=== PATIENT | female | born 1985 | race Caucasian/White ===

== ENCOUNTER → 2017-09-22 | Outpatient (CLI) | payer OTHER ==
[~2017-09-22] MED LIST: BARIUM 700 MG (E-Z-DISK) TABLET PO ONE; BARIUM SUSPENSION 105% (LIQUID POLIBAR PLUS) 240 ML/DOSE PO ONE; BARIUM SUSPENSION 60% (LIQUID EZ PAQUE) 240 ML DOSE PO ONE
--- NOTE | 2017-09-22 12:54 | Diagnostic Imaging Report ---
EXAMINATION: Barium swallow. INDICATION: Difficulty swallowing. FINDINGS: The preliminary film is unremarkable. A double contrast exam was performed. The patient swallowed the contrast material without difficulty. There was no delay or obstruction to the passage of barium through the esophagus. There is no evidence for a hiatal hernia but there was one episode of reflux. There is no sign of esophagitis. The patient was also given a 12 mm barium tablet. She was able swallow the tablet without difficulty. A cursory examination of the stomach shows that the stomach has good distensibility and motility. There is no mass or ulceration. The duodenal bulb and proximal small bowel are unremarkable. IMPRESSION: 1. The esophagus shows fairly good distensibility and motility. There is no evidence for obstruction. 2. There is mild gastroesophageal reflux without evidence for esophagitis. 3. The stomach and proximal small bowel are unremarkable. Dictated by: Dictated on workstation # [id number]
== END ==
LOC: RAD 10:46
PROVIDERS: ATTEND Internal Medicine
DX: K21.9 Gastro-esophageal reflux disease without esophagitis (principal)
CPT/HCPCS: 74220

== ENCOUNTER 2018-07-11 08:47 | Emergency (ER) | payer OTHER ==
[~2018-07-11] VITALS: Ht 165.1 cm; Wt 90.7 kg
--- OUTSIDE RECORDS SUMMARY | 2018-07-11 08:51 | XMS REPORT ---
Author Author JENNIFER ALFRED Organization [facility] Address [address] [place] [address] Care Team Providers Care Senior Risk Analyst Name Role Phone JENNIFER ALFRED Unavailable PROBLEMS Type Condition ICD9-CM Code [id number]-[id number] Code Onset Dates Condition Status SNOMED Code Problem Partner relational problem Z63.0 Active 9768479827212 Problem Pharyngoesophageal dysphagia R13.14 Active 95033567 Problem Dysthymia F34.1 Active 48939876 Problem Abnormal LFTs R94.5 Active 748181220 Problem Chronic fatigue R53.82 Active 04527041 Problem AUDREY (generalized anxiety disorder) F41.1 Active 33721785 Problem Panic disorder F41.0 Active 829170558 Problem Moderate episode of recurrent major depressive disorder F33.1 Active 302196372 Problem Gastroesophageal reflux disease without esophagitis K21.9 Active 576826252 ALLERGIES No Information ENCOUNTERS Encounter Location Date Diagnosis [place] [id number] [place] [address] 75085- 6554 15 Apr, 2018 Abnormal LFTs R94.5 [place] [id number] [place] [address] 04594- 9526 08 Apr, 2018 Chronic fatigue R53.82 ; Acute conjunctivitis of left eye, unspecified acute conjunctivitis type H10.32 ; Encounter for immunization Z23 and BMI 40.0-44.9, adult Z68.41 [facility] [address] [place] [address] 44648- 2207 November, Moderate episode of recurrent major depressive disorder F33.1 ; AUDREY (generalized anxiety disorder) F41.1 and Panic disorder F41.0 [facility] [id number] [place] [address] 94852- 0505 November, Dysuria R30.0 and Acute cystitis with hematuria N30.01 [place] [address] [place] [address] 07207- 6934 03 Nov, 2017 AUDREY (generalized anxiety disorder) F41.1 ; Panic disorder F41.0 and Moderate episode of recurrent major depressive disorder F33.1 [place] [id number] [place] [address] 57026- 6306 Sep, Panic disorder F41.0 and AUDREY (generalized anxiety disorder) F41.1 [place] [id number] [place] [address] 91951- 8541 Sep, Gastroesophageal reflux disease without esophagitis K21.9 [place] [address] [place] [phone]- 9435 Sep, Pharyngoesophageal dysphagia R13.14 ; Dysthymia F34.1 and Panic disorder F41.0 [place] [id number] [place] [address] 69390- 5367 28 Aug, 2017 Dental examination Z01.20 [facility] [id number] [place] [address] [id number] Jul, Encounter for dental examination Z01.20 [facility] [id number] [place] [address] 74284- 0417 27 May, 2017 Encounter for immunization Z23 [place] [id number] [place] [address] 99543- 3915 May, Partner relational problem Z63.0 [place] [id number] [place] [address] 52081- 2282 Apr, Partner relational problem Z63.0 [place] [id number] [place] [address] 77866- 8037 Apr, IMMUNIZATIONS No Known Immunizations SOCIAL HISTORY Never Assessed REASON FOR VISIT PLAN OF CARE Activity Details Pending Test HEP C ANTIBODY (STATE) Pending Test LIPID PANEL VITAL SIGNS MEDICATIONS Unknown Medications RESULTS No Results PROCEDURES Procedure Date Ordered Result Body Site LIPID PANEL Apr 27, 2018 No Charge Apr 27, 2018 INSTRUCTIONS MEDICATIONS ADMINISTERED No Known Medications MEDICAL (GENERAL) HISTORY Type Description Date Medical History Anxiety Medical History GERD Surgical History Third Molar Extraction 09/05/2017 Hospitalization History Childbirth
--- OUTSIDE RECORDS SUMMARY | 2018-07-11 08:51 | XMS REPORT ---
Author Author NIESHA BEN [facility] Address [address] [place] [address] Care Team Providers Care Supervisor Facepiece Line Name Role Phone BEN SCHERER Unavailable PROBLEMS Type Condition ICD9-CM Code RQT76-KG Code Onset Dates Condition Status SNOMED Code Problem Partner relational problem Z63.0 Active 6445348501231 Problem Moderate episode of recurrent major depressive disorder F33.1 Active 596376125 Problem Gastroesophageal reflux disease without esophagitis K21.9 Active 789490337 Problem Pharyngoesophageal dysphagia R13.14 Active 32739037 Problem Dysthymia F34.1 Active 45553622 Problem AUDREY (generalized anxiety disorder) F41.1 Active 41486069 Problem Panic disorder F41.0 Active 837162692 ALLERGIES Substance Reaction Event Type Date Status Penicillin V Potassium anaphylaxis Drug Allergy November, Active ENCOUNTERS Encounter Location Date Diagnosis [place] [address] [address]- [address] Mar, [place] [id number] [place] [address] 81505- 0860 November, Moderate episode of recurrent major depressive disorder F33.1 ; AUDREY (generalized anxiety disorder) F41.1 and Panic disorder F41.0 [place] [address] [place] [id number] [place] [address] 86032- 7236 November, Dysuria R30.0 and Acute cystitis with hematuria N30.[address] 97616- 2643 November, AUDREY (generalized anxiety disorder) F41.1 ; Panic disorder F41.0 and Moderate episode of recurrent major depressive disorder F33.1 [place] [address] [place] [id number] [place] [address] 90073- 4628 Sep, Panic disorder F41.0 and AUDREY (generalized anxiety disorder) F41.1 [place] [address] [place] [address] 16840- 1464 Sep, Gastroesophageal reflux disease without esophagitis K21.9 [place] [address] [place] [id number] [place] [address] 56048- 7645 Sep, Pharyngoesophageal dysphagia R13.14 ; Dysthymia F34.1 and Panic disorder F41.0 [place] [address] [id number] [place] [address] 67251- 3286 Aug, Dental examination Z01.20 [facility] [id number] [place] [address] [id number] Jul, Encounter for dental examination Z01.20 [place] [address] [place] [address] [id number] [place] [address] 17720- 1467 May, Encounter for immunization Z23 [place] [address] [id number] [place] [address] 27817- 1545 May, Partner relational problem Z63.0 [place] [address] [id number] [place] [address] 14849- 6408 Apr, Partner relational problem Z63.0 [place] [address] [place] [id number] [place] [address] 90313- 9267 Apr, IMMUNIZATIONS No Known Immunizations SOCIAL HISTORY Never Assessed REASON FOR VISIT poss UTI-twooden PLAN OF CARE Activity Details Follow Up prn Reason: VITAL SIGNS Height 60 in 2017-11-17 Weight 203.2 lbs 2017-11-17 Temperature 97.9 degrees Fahrenheit 2017-11-17 Heart Rate 76 bpm 2017-11-17 Respiratory Rate 18 2017-11-17 BMI 39.68 kg/m2 2017-11-17 Blood pressure systolic 112 mmHg 2017-11-17 Blood pressure diastolic 76 mmHg 2017-11-17 MEDICATIONS Medication Instructions Dosage Frequency Start Date End Date Duration Status Lorazepam 1 MG Orally Once a day prn 1 tablet 30 days Active Lexapro 20 MG Orally Once a day 1 tablet 24h 30 days Active Zantac 150 MG Orally twice a day 1 tab 12h Sep, 30 day(s) Active Macrobid 100 mg Orally every 12 hrs 1 capsule with food 12h November, November, 03 days Active Wellbutrin XL 150 MG Orally Once a day 1 tablet every morning for one week then take 2 tablets every morning 24h November, 30 day(s) Active Valium Active Ibuprofen 200 MG Orally every 4-6 hours as needed 2 tablet Not- Taking Tylenol Not-Taking RESULTS No Results PROCEDURES Procedure Date Ordered Result Body Site URINALYSIS, AUTO, W/O SCOPE November 17, 2017 CULTURE, BACTERIA, OTHER November 17, 2017 URINE CULTURE/COLONY COUNT November 17, 2017 INSTRUCTIONS MEDICATIONS ADMINISTERED No Known Medications MEDICAL (GENERAL) HISTORY Type Description Date Medical History Anxiety Medical History GERD Surgical History Third Molar Extraction 09/05/2017 Hospitalization History Childbirth
--- OUTSIDE RECORDS SUMMARY | 2018-07-11 08:51 | XMS REPORT ---
Author Author ILENE ABIODUN Organization [facility] Address [address] [place] [address] Care Team Providers Care Sap Business Objects Consultant Name Role Phone DASIADUONG ABIODUN Unavailable PROBLEMS Type Condition ICD9-CM Code YLK77-SZ Code Onset Dates Condition Status SNOMED Code Problem Partner relational problem Z63.0 Active 3192953543087 Problem Moderate episode of recurrent major depressive disorder F33.1 Active 437163966 Problem Gastroesophageal reflux disease without esophagitis K21.9 Active 561579101 Problem Pharyngoesophageal dysphagia R13.14 Active 78632346 Problem Dysthymia F34.1 Active 37176599 Problem AUDREY (generalized anxiety disorder) F41.1 Active 80964078 Problem Panic disorder F41.0 Active 268686868 ALLERGIES No Information ENCOUNTERS Encounter Location Date Diagnosis [place] [address] [place] [address] 94347- 4518 Mar, [facility] [id number] [place] [address] 46544- 6812 November, Moderate episode of recurrent major depressive disorder F33.1 ; AUDREY (generalized anxiety disorder) F41.1 and Panic disorder F41.0 [facility] [address] [place] [address] 62213- 3101 November, Dysuria R30.0 and Acute cystitis with hematuria N30.01 [place] [address] [place] [id number] [place] [address] 19873- 7914 November, AUDREY (generalized anxiety disorder) F41.1 ; Panic disorder F41.0 and Moderate episode of recurrent major depressive disorder F33.1 [facility] [address] [place] [address] 11289- 2781 Sep, Panic disorder F41.0 and AUDREY (generalized anxiety disorder) F41.1 [facility] [id number] [place] [address] 20174- 5616 Sep, Gastroesophageal reflux disease without esophagitis K21.9 [place] [id number] [place] [address]- 1210 Sep, Pharyngoesophageal dysphagia R13.14 ; Dysthymia F34.1 and Panic disorder F41.0 [place] [address] 58961- 8919 28 Aug, 2017 Dental examination Z01.20 [facility] [address] [id number] Jul, Encounter for dental examination Z01.20 [place] [address] 24961- 6418 May, Encounter for immunization Z23 [place] [address] 99288- 1171 08 May, 2017 Partner relational problem Z63.0 [place] [address] 26963- 2742 18 Apr, 2017 Partner relational problem Z63.0 [place] [address] 13372- 6991 17 Apr, 2017 IMMUNIZATIONS No Known Immunizations SOCIAL HISTORY Never Assessed REASON FOR VISIT f/u WB-SUJATHA PLAN OF CARE Activity Details Follow Up 4 Months, prn Reason: VITAL SIGNS Height 60 in 2017-12-11 Weight 199.3 lbs 2017-12-11 Heart Rate 83 bpm 2017-12-11 Respiratory Rate 18 2017-12-11 BMI 38.92 kg/m2 2017-12-11 Blood pressure systolic 128 mmHg 2017-12-11 Blood pressure diastolic 82 mmHg 2017-12-11 MEDICATIONS Medication Instructions Dosage Frequency Start Date End Date Duration Status Zantac 150 MG Orally twice a day 1 tab 12h Sep, 30 day(s) Not- Taking Wellbutrin XL 300 MG Orally Once a day 1 tablet in the morning 24h November, 90 days Active Ibuprofen 200 MG Orally every 4-6 hours as needed 2 tablet Not- Taking Tylenol Not-Taking Lexapro 20 MG Orally Once a day 1 tablet 24h 90 days Active Lorazepam 1 MG Orally Once a day prn 1 tablet 30 days Active RESULTS No Results PROCEDURES No Known procedures INSTRUCTIONS MEDICATIONS ADMINISTERED No Known Medications MEDICAL (GENERAL) HISTORY Type Description Date Medical History Anxiety Medical History GERD Surgical History Third Molar Extraction 09/05/2017 Hospitalization History Childbirth
--- OUTSIDE RECORDS SUMMARY | 2018-07-11 08:52 | XMS REPORT ---
Author Author radhaTIFFANIE Padron Organization [facility] Address [address] [place] [address] Care Team Providers Care Implant Polisher Name Role Phone TIFFANIE Franz Unavailable PROBLEMS Type Condition ICD9-CM Code PON89-IH Code Onset Dates Condition Status SNOMED Code Problem Partner relational problem Z63.0 Active 2543581337157 Problem Moderate episode of recurrent major depressive disorder F33.1 Active 905333956 Problem Gastroesophageal reflux disease without esophagitis K21.9 Active 299968260 Problem Pharyngoesophageal dysphagia R13.14 Active 02408341 Problem Dysthymia F34.1 Active 38584261 Problem AUDREY (generalized anxiety disorder) F41.1 Active 71704906 Problem Panic disorder F41.0 Active 960605633 ALLERGIES Substance Reaction Event Type Date Status Penicillin V Potassium anaphylaxis Drug Allergy Aug, Active ENCOUNTERS Encounter Location Date Diagnosis [place] [address] [address]64- 8438 Mar, [place] [address] [place] [address] [id number] [place] [address] 48279- 0165 November, Moderate episode of recurrent major depressive disorder F33.1 ; AUDREY (generalized anxiety disorder) F41.1 and Panic disorder F41.0 [place] [address] [place] [id number] [place] [address] 53407- 8343 November, Dysuria R30.0 and Acute cystitis with hematuria N30.01 [place] [address] [place] [address] [id number] [place] [address] 19646- 1336 November, AUDREY (generalized anxiety disorder) F41.1 ; Panic disorder F41.0 and Moderate episode of recurrent major depressive disorder F33.1 [place] [address] 37475- 7965 Sep, Panic disorder F41.0 and AUDREY (generalized anxiety disorder) F41.1 [facility] [address] [place] [address] 08791- 0373 Sep, Gastroesophageal reflux disease without esophagitis K21.9 [facility] [address] [id number] [place] [address] 63563- 2132 Sep, Pharyngoesophageal dysphagia R13.14 ; Dysthymia F34.1 and Panic disorder F41.0 [facility] [address] [place] [address] 45423- 3791 Aug, Dental examination Z01.20 [facility] [address] [place] [address] [id number] Jul, Encounter for dental examination Z01.20 [facility] [id number] [place] [address] 47835- 4049 May, Encounter for immunization Z23 [facility] [address] [place] [id number] [place] [address] 25867- 5957 08 May, 2017 Partner relational problem Z63.0 [place] [address] [id number] [place] [address] 22927- 7503 18 Apr, 2017 Partner relational problem Z63.0 [facility] [address] [place] [id number] [place] [address] 57375- 9335 Apr, IMMUNIZATIONS No Known Immunizations SOCIAL HISTORY Never Assessed REASON FOR VISIT Lower left wisdom tooth extraction post op pain PLAN OF CARE Activity Details Follow Up prn Reason: VITAL SIGNS Heart Rate 72 bpm 2017-09-10 Blood pressure systolic 124 mmHg 2017-09-10 Blood pressure diastolic 81 mmHg 2017-09-10 MEDICATIONS Medication Instructions Dosage Frequency Start Date End Date Duration Status Tylenol Active Valium Active Percocet 5-325 MG Orally every 4-6 hrs 1 tablet as needed Aug, Sep, 1 days Active Clindamycin HCl Active Ibuprofen Active Lorazepam Active RESULTS No Results PROCEDURES Procedure Date Ordered Result Body Site LTD ORAL EVALUATION - PROBLEM FOCUS Sep 10, 2017 INSTRUCTIONS MEDICATIONS ADMINISTERED No Known Medications MEDICAL (GENERAL) HISTORY Type Description Date Medical History Anxiety Medical History GERD Surgical History Third Molar Extraction 09/05/2017 Hospitalization History Childbirth
--- OUTSIDE RECORDS SUMMARY | 2018-07-11 08:52 | XMS REPORT ---
Author Author JENNIFER ALFRED Organization [facility] Address [address] [place] [address] Care Team Providers Care Rubber Block Layer Name Role Phone JENNIFER ALFRED Unavailable PROBLEMS Type Condition ICD9-CM Code ATU29-KX Code Onset Dates Condition Status SNOMED Code Problem Partner relational problem Z63.0 Active 5468155212690 Problem Moderate episode of recurrent major depressive disorder F33.1 Active 267252127 Problem Gastroesophageal reflux disease without esophagitis K21.9 Active 526623693 Problem Pharyngoesophageal dysphagia R13.14 Active 49823985 Problem Dysthymia F34.1 Active 40873752 Problem AUDERY (generalized anxiety disorder) F41.1 Active 42754260 Problem Panic disorder F41.0 Active 719293937 ALLERGIES Substance Reaction Event Type Date Status Penicillin V Potassium anaphylaxis Drug Allergy Sep, Active ENCOUNTERS Encounter Location Date Diagnosis [place] [address] [address]- [address] Mar, [place] [address] 94311- 8796 November, Moderate episode of recurrent major depressive disorder F33.1 ; AUDREY (generalized anxiety disorder) F41.1 and Panic disorder F41.0 [place] [address] [place] [id number] [place] [address] 32268- 5961 November, Dysuria R30.0 and Acute cystitis with hematuria N30.[address] 6[address]00- 3967 November, AUDREY (generalized anxiety disorder) F41.1 ; Panic disorder F41.0 and Moderate episode of recurrent major depressive disorder F33.1 [place] [address] 52844- 6179 Sep, Panic disorder F41.0 and AUDREY (generalized anxiety disorder) F41.1 [place] [address] [place] [address] 76223- 9323 Sep, Gastroesophageal reflux disease without esophagitis K21.9 [place] [address] [place] [id number] [place] [address] 38865- 0017 Sep, Pharyngoesophageal dysphagia R13.14 ; Dysthymia F34.1 and Panic disorder F41.0 [place] [address] [place] [id number] [place] [address] 12120- 4385 Aug, Dental examination Z01.20 [facility] [address] [id number] [place] [address] [id number] Jul, Encounter for dental examination Z01.20 [place] [address] [address] [id number] [place] [address] 19650- 8706 May, Encounter for immunization Z23 [place] [address] [address] [id number] [place] [address] 34701- 9358 May, Partner relational problem Z63.0 [place] [address] 66600- 6797 Apr, Partner relational problem Z63.0 [place] [address] [place] [id number] [place] [address] 58722- 9103 Apr, IMMUNIZATIONS No Known Immunizations SOCIAL HISTORY Never Assessed REASON FOR VISIT Establish Care- Brandi, Pt feels like food is stuck in her throat and sometimes she vomits from it. , Also, wants to talk about anxiety and wants to have a refill for valium and Lexapro PLAN OF CARE Activity Details Follow Up prn Reason: VITAL SIGNS Height 60 in 2017-09-11 Weight 194.7 lbs 2017-09-11 Temperature 98.4 degrees Fahrenheit 2017-09-11 Heart Rate 72 bpm 2017-09-11 Respiratory Rate 20 2017-09-11 BMI 38.02 kg/m2 2017-09-11 Blood pressure systolic 128 mmHg 2017-09-11 Blood pressure diastolic 76 mmHg 2017-09-11 MEDICATIONS Medication Instructions Dosage Frequency Start Date End Date Duration Status Clindamycin HCl 150 MG Orally every 6 hrs 1 capsule 6h Active Lexapro 20 MG Orally Once a day 1 tablet 24h 30 days Active Percocet 5-325 MG Orally every 4-6 hrs 1 tablet as needed Aug, Sep, Active Tylenol Not-Taking Valium Active Ibuprofen 200 MG Orally every 4-6 hours as needed 2 tablet Active Lorazepam Orally Once a day 1 tablet as needed 24h Active RESULTS Name Result Date Reference Range Barium Swallow 2017-09-22 PROCEDURES No Known procedures INSTRUCTIONS MEDICATIONS ADMINISTERED No Known Medications MEDICAL (GENERAL) HISTORY Type Description Date Medical History Anxiety Medical History GERD Surgical History Third Molar Extraction 09/05/2017 Hospitalization History Childbirth
--- OUTSIDE RECORDS SUMMARY | 2018-07-11 08:52 | XMS REPORT ---
Author Author MURRAY KENNY [facility] Address [address] [place] [address] Care Team Providers Care Social Service Assistant Name Role Phone MURRAY KENNY Unavailable PROBLEMS Type Condition ICD9-CM Code MYP84-[id number] Code Onset Dates Condition Status SNOMED Code Problem Partner relational problem Z63.0 Active 1280338217227 Problem Moderate episode of recurrent major depressive disorder F33.1 Active 113147398 Problem Gastroesophageal reflux disease without esophagitis K21.9 Active 392742394 Problem Pharyngoesophageal dysphagia R13.14 Active 33121183 Problem Dysthymia F34.1 Active 14759508 Problem AUDREY (generalized anxiety disorder) F41.1 Active 14291801 Problem Panic disorder F41.0 Active 092622291 ALLERGIES No Information ENCOUNTERS Encounter Location Date Diagnosis [place] [id number] [place] [address] 57476- 3781 Dec, [place] [id number] [place] [address] 52045- 3045 November, Dysuria R30.0 and Acute cystitis with hematuria N30.01 [place] [id number] [place] [address] 69069- 9968 November, AUDREY (generalized anxiety disorder) F41.1 ; Panic disorder F41.0 and Moderate episode of recurrent major depressive disorder F33.1 [place] [id number] [place] [address] 86509- 5794 Sep, Panic disorder F41.0 and AUDREY (generalized anxiety disorder) F41.1 [place] [id number] [place] [address] 16709- 2839 Sep, Gastroesophageal reflux disease without esophagitis K21.9 [place] [address] [place] [address] Sep, Pharyngoesophageal dysphagia R13.14 ; Dysthymia F34.1 and Panic disorder F41.0 [facility] [address] [place] [address] 27196- 2219 Aug, Dental examination Z01.20 [facility] [address] [place] [address] [phone] Jul, Encounter for dental examination Z01.20 [place] [id number] [place] [address] 27941- 5652 May, Encounter for immunization Z23 [place] [id number] [place] [address] 40829- 5500 May, Partner relational problem Z63.0 [place] [address] [place] [address] 81838- 4991 Apr, Partner relational problem Z63.0 [place] [id number] [place] [address] 56826- 9535 Apr, IMMUNIZATIONS No Known Immunizations SOCIAL HISTORY Never Assessed REASON FOR VISIT FYI only PLAN OF CARE VITAL SIGNS MEDICATIONS Unknown Medications RESULTS No Results PROCEDURES No Known procedures INSTRUCTIONS MEDICATIONS ADMINISTERED No Known Medications MEDICAL (GENERAL) HISTORY Type Description Date Medical History Anxiety Medical History GERD Surgical History Third Molar Extraction 09/05/2017 Hospitalization History Childbirth
--- OUTSIDE RECORDS SUMMARY | 2018-07-11 08:52 | XMS REPORT ---
Author Author JENNIFER ALFRED Organization [facility] Address [address] [place] [address] Care Team Providers Care Screening Nurse Name Role Phone JENNIFER ALFRED Unavailable PROBLEMS Type Condition ICD9-CM Code BUQ58-TU Code Onset Dates Condition Status SNOMED Code Problem Partner relational problem Z63.0 Active 0028000791990 Problem Moderate episode of recurrent major depressive disorder F33.1 Active 554513831 Problem Gastroesophageal reflux disease without esophagitis K21.9 Active 237537245 Problem Pharyngoesophageal dysphagia R13.14 Active 87442070 Problem Dysthymia F34.1 Active 22225993 Problem AUDREY (generalized anxiety disorder) F41.1 Active 68863561 Problem Panic disorder F41.0 Active 746355476 ALLERGIES No Information ENCOUNTERS Encounter Location Date Diagnosis [place] [id number] [place] [address] 77868- [phone] Mar, [facility] [id number] [place] [address] 21155- 6895 November, Moderate episode of recurrent major depressive disorder F33.1 ; AUDREY (generalized anxiety disorder) F41.1 and Panic disorder F41.0 [facility] [id number] [place] [address] 29988- 4072 November, Dysuria R30.0 and Acute cystitis with hematuria N30.01 [place] [id number] [place] [address] 89849- 2375 November, AUDREY (generalized anxiety disorder) F41.1 ; Panic disorder F41.0 and Moderate episode of recurrent major depressive disorder F33.1 [facility] [address] [place] [address] 38668- 6770 Sep, Panic disorder F41.0 and AUDREY (generalized anxiety disorder) F41.1 [facility] [address] [address] Sep, Gastroesophageal reflux disease without esophagitis K21.9 [facility] [id number] [place] [address] 73642- 5748 Sep, Pharyngoesophageal dysphagia R13.14 ; Dysthymia F34.1 and Panic disorder F41.0 [facility] [id number] [place] [address] 34384- 8266 28 Aug, 2017 Dental examination Z01.20 [facility] [address] [place] [address] [phone] Jul, Encounter for dental examination Z01.20 [place] [id number] [place] [address] 21613- 3417 27 May, 2017 Encounter for immunization Z23 [place] [id number] [place] [address] 27389- 3754 08 May, 2017 Partner relational problem Z63.0 [place] [id number] [place] [address] 22990- 9173 18 Apr, 2017 Partner relational problem Z63.0 [place] [id number] [place] [address] 58161- 7599 17 Apr, 2017 IMMUNIZATIONS No Known Immunizations SOCIAL HISTORY Never Assessed REASON FOR VISIT PLAN OF CARE VITAL SIGNS MEDICATIONS Medication Instructions Dosage Frequency Start Date End Date Duration Status Zantac 150 MG Orally twice a day 1 tab 12h Sep, 30 day(s) Active RESULTS No Results PROCEDURES No Known procedures INSTRUCTIONS MEDICATIONS ADMINISTERED No Known Medications MEDICAL (GENERAL) HISTORY Type Description Date Medical History Anxiety Medical History GERD Surgical History Third Molar Extraction 09/05/2017 Hospitalization History Childbirth
--- OUTSIDE RECORDS SUMMARY | 2018-07-11 08:52 | XMS REPORT ---
Author Author ILENE ABIODUN Organization [facility] Address [address] [place] [address] Care Team Providers Care Equipment Application Specialist Name Role Phone DASIABHUPINDER WATTERSA Unavailable PROBLEMS Type Condition ICD9-CM Code UHP27-MB Code Onset Dates Condition Status SNOMED Code Problem Partner relational problem Z63.0 Active 0813819183585 Problem Moderate episode of recurrent major depressive disorder F33.1 Active 847018871 Problem Gastroesophageal reflux disease without esophagitis K21.9 Active 974903417 Problem Pharyngoesophageal dysphagia R13.14 Active 34639046 Problem Dysthymia F34.1 Active 70849078 Problem AUDREY (generalized anxiety disorder) F41.1 Active 30666920 Problem Panic disorder F41.0 Active 743460967 ALLERGIES Substance Reaction Event Type Date Status Penicillin V Potassium anaphylaxis Drug Allergy Sep, Active ENCOUNTERS Encounter Location Date Diagnosis [place] [id number] [place] [address] 23594- 0196 Mar, [place] [id number] [place] [address] 62225- 8793 November, Moderate episode of recurrent major depressive disorder F33.1 ; AUDREY (generalized anxiety disorder) F41.1 and Panic disorder F41.0 [facility] [id number] [place] [address] 36385- 4065 November, Dysuria R30.0 and Acute cystitis with hematuria N30.01 [place] [address] 91376- 2870 November, AUDREY (generalized anxiety disorder) F41.1 ; Panic disorder F41.0 and Moderate episode of recurrent major depressive disorder F33.1 [place] [id number] [place] [address] 30722- 2562 Sep, Panic disorder F41.0 and AUDREY (generalized anxiety disorder) F41.1 [place] [address] [place] [address] 70510- 8251 Sep, Gastroesophageal reflux disease without esophagitis K21.9 [place] [id number] [place] [address] 87369- 9211 Sep, Pharyngoesophageal dysphagia R13.14 ; Dysthymia F34.1 and Panic disorder F41.0 [place] [address] [place] [address] 96384- 1993 Aug, Dental examination Z01.20 [facility] [id number] [place] [address] [phone] Jul, Encounter for dental examination Z01.20 [place] [id number] [place] [address] 30531- 9555 27 May, 2017 Encounter for immunization Z23 [place] [id number] [place] [address] 22145- 5598 08 May, 2017 Partner relational problem Z63.0 [place] [id number] [place] [address] 93287- 2836 18 Apr, 2017 Partner relational problem Z63.0 [place] [id number] [place] [address] 27370- 6297 Apr, IMMUNIZATIONS No Known Immunizations SOCIAL HISTORY Never Assessed REASON FOR VISIT intake PLAN OF CARE Activity Details Follow Up 2 Months Reason: VITAL SIGNS Height 60 in 2017-10-02 Weight 194.6 lbs 2017-10-02 Heart Rate 80 bpm 2017-10-02 Respiratory Rate 20 2017-10-02 BMI 38.00 kg/m2 2017-10-02 Blood pressure systolic 112 mmHg 2017-10-02 Blood pressure diastolic 84 mmHg 2017-10-02 MEDICATIONS Medication Instructions Dosage Frequency Start Date End Date Duration Status Ibuprofen 200 MG Orally every 4-6 hours as needed 2 tablet Not- Taking Zantac 150 MG Orally twice a day 1 tab 12h Sep, 30 day(s) Active Tylenol Not-Taking Lorazepam 1 MG Orally Once a day 1 tablet 24h 30 days Active Clindamycin HCl 150 MG Orally every 6 hrs 1 capsule 6h Not-Taking Lexapro 20 MG Orally Once a day 1 tablet 24h 30 days Active Valium Not-Taking RESULTS No Results PROCEDURES No Known procedures INSTRUCTIONS MEDICATIONS ADMINISTERED No Known Medications MEDICAL (GENERAL) HISTORY Type Description Date Medical History Anxiety Medical History GERD Surgical History Third Molar Extraction 09/05/2017 Hospitalization History Childbirth
--- OUTSIDE RECORDS SUMMARY | 2018-07-11 08:52 | XMS REPORT ---
Author Author ILNEE ABIODUN Organization [facility] Address [address] [place] [address] Care Team Providers Care Orchard Manager Name Role Phone DASIABHUPINDER WATTERSA Unavailable PROBLEMS Type Condition ICD9-CM Code AXI67-[id number] Code Onset Dates Condition Status SNOMED Code Problem Partner relational problem Z63.0 Active 3681629406515 Problem Moderate episode of recurrent major depressive disorder F33.1 Active 472014408 Problem Gastroesophageal reflux disease without esophagitis K21.9 Active 181227804 Problem Pharyngoesophageal dysphagia R13.14 Active 38419129 Problem Dysthymia F34.1 Active 76404385 Problem AUDREY (generalized anxiety disorder) F41.1 Active 49659831 Problem Panic disorder F41.0 Active 908868062 ALLERGIES Substance Reaction Event Type Date Status Penicillin V Potassium anaphylaxis Drug Allergy November, Active ENCOUNTERS Encounter Location Date Diagnosis [place] [id number] [place] [address] 49485- 7769 Mar, [place] [id number] [place] [address] 12435- 2755 November, Moderate episode of recurrent major depressive disorder F33.1 ; AUDREY (generalized anxiety disorder) F41.1 and Panic disorder F41.0 [place] [id number] [place] [address] 34398- 3927 November, Dysuria R30.0 and Acute cystitis with hematuria N30.01 [place] [address] 22984- 5662 November, AUDREY (generalized anxiety disorder) F41.1 ; Panic disorder F41.0 and Moderate episode of recurrent major depressive disorder F33.1 [place] [id number] [place] [address] 85206- 4737 Sep, Panic disorder F41.0 and AUDREY (generalized anxiety disorder) F41.1 [place] [address] [place] [address] 08983- 3477 Sep, Gastroesophageal reflux disease without esophagitis K21.9 [place] [id number] [place] [address] 63875- 2360 Sep, Pharyngoesophageal dysphagia R13.14 ; Dysthymia F34.1 and Panic disorder F41.0 [place] [address] [place] [address] 80841- 4869 Aug, Dental examination Z01.20 [facility] [id number] [place] [address] [phone] Jul, Encounter for dental examination Z01.20 [place] [id number] [place] [address] 57059- 5813 May, Encounter for immunization Z23 [place] [id number] [place] [address] 82802- 9665 08 May, 2017 Partner relational problem Z63.0 [place] [id number] [place] [address] 81811- 6432 18 Apr, 2017 Partner relational problem Z63.0 [place] [id number] [place] [address] 96295- 4752 Apr, IMMUNIZATIONS No Known Immunizations SOCIAL HISTORY Never Assessed REASON FOR VISIT f/uIvon SOLARES PLAN OF CARE Activity Details Follow Up 4 Weeks, prn Reason: VITAL SIGNS Height 60 in 2017-11-13 Weight 203.3 lbs 2017-11-13 Heart Rate 78 bpm 2017-11-13 Respiratory Rate 20 2017-11-13 BMI 39.70 kg/m2 2017-11-13 Blood pressure systolic 128 mmHg 2017-11-13 Blood pressure diastolic 86 mmHg 2017-11-13 MEDICATIONS Medication Instructions Dosage Frequency Start Date End Date Duration Status Lexapro 20 MG Orally Once a day 1 tablet 24h 30 days Active Lorazepam 1 MG Orally Once a day prn 1 tablet 30 days Active Tylenol Not-Taking Wellbutrin XL 150 MG Orally Once a day 1 tablet every morning for one week then take 2 tablets every morning 24h November, 30 day(s) Active Zantac 150 MG Orally twice a day 1 tab 12h Sep, 30 day(s) Active Ibuprofen 200 MG Orally every 4-6 hours as needed 2 tablet Not- Taking Valium Not-Taking Clindamycin HCl 150 MG Orally every 6 hrs 1 capsule 6h Not-Taking RESULTS No Results PROCEDURES No Known procedures INSTRUCTIONS MEDICATIONS ADMINISTERED No Known Medications MEDICAL (GENERAL) HISTORY Type Description Date Medical History Anxiety Medical History GERD Surgical History Third Molar Extraction 09/05/2017 Hospitalization History Childbirth
--- OUTSIDE RECORDS SUMMARY | 2018-07-11 08:52 | XMS REPORT ---
Author Author MURRAY KENNY [facility] Address [address] [place] [address] Care Team Providers Care Card Maker Name Role Phone MURRAY KENNY Unavailable PROBLEMS Type Condition ICD9-CM Code TQH08-TO Code Onset Dates Condition Status SNOMED Code Problem Partner relational problem Z63.0 Active 0584941274575 Problem Moderate episode of recurrent major depressive disorder F33.1 Active 439158716 Problem Gastroesophageal reflux disease without esophagitis K21.9 Active 586224465 Problem Pharyngoesophageal dysphagia R13.14 Active 97506971 Problem Dysthymia F34.1 Active 65079258 Problem AUDREY (generalized anxiety disorder) F41.1 Active 82927806 Problem Panic disorder F41.0 Active 886059444 ALLERGIES No Information ENCOUNTERS Encounter Location Date Diagnosis [place] [id number] [place] [address] 37922- 0433 Dec, [place] [id number] [place] [address] 24530- 6764 November, Dysuria R30.0 and Acute cystitis with hematuria N30.01 [place] [id number] [place] [address] 00441- 3619 November, AUDREY (generalized anxiety disorder) F41.1 ; Panic disorder F41.0 and Moderate episode of recurrent major depressive disorder F33.1 [place] [id number] [place] [address] 92411- 7244 Sep, Panic disorder F41.0 and AUDREY (generalized anxiety disorder) F41.1 [place] [id number] [place] [address] 20594- 1869 Sep, Gastroesophageal reflux disease without esophagitis K21.9 [place] [address] [address]- 7683 Sep, Pharyngoesophageal dysphagia R13.14 ; Dysthymia F34.1 and Panic disorder F41.0 [facility] [address], [place] [address] Aug, Dental examination Z01.20 [facility] [address] [place] [address] [phone] Jul, Encounter for dental examination Z01.20 [facility] [id number] [place] [address] 20271- 6587 May, Encounter for immunization Z23 [place] [id number] [place] [address] 20261- 6232 May, Partner relational problem Z63.0 [place] [address] [place] [address] 38630- 3094 Apr, Partner relational problem Z63.0 [place] [address] [place] [address] 52042- 1567 Apr, IMMUNIZATIONS No Known Immunizations SOCIAL HISTORY Never Assessed REASON FOR VISIT Couple Intake PLAN OF CARE Activity Details Follow Up Next available Reason:BH F/U VITAL SIGNS MEDICATIONS Unknown Medications RESULTS No Results PROCEDURES Procedure Date Ordered Result Body Site RELATIONSHIP COUN Apr 30, 2017 INSTRUCTIONS MEDICATIONS ADMINISTERED No Known Medications MEDICAL (GENERAL) HISTORY Type Description Date Medical History Anxiety Medical History GERD Surgical History Third Molar Extraction 09/05/2017 Hospitalization History Childbirth
[2018-07-11 09:10] LABS: BASOPHILS % (AUTO) 0 % (0-10); EOSINOPHILS # (AUTO) 0.1 10^3/uL (0.0-0.3); EOSINOPHILS % (AUTO) 2 % (0-10); HEMATOCRIT 40 % (35-52); HEMOGLOBIN 13.6 G/DL (11.5-16.0); LYMPHOCYTES # (AUTO) 2.7 X 10^3 (1.0-4.0); LYMPHOCYTES % (AUTO) 33 % (12-44); MEAN CORPUSCULAR HEMOGLOBIN 31 PG (25-34); MEAN CORPUSCULAR HGB CONC 34 G/DL (32-36); MEAN CORPUSCULAR VOLUME 89 FL (80-99); MEAN PLATELET VOLUME 10.3 FL (7.4-10.4); MONOCYTES # (AUTO) 0.7 X 10^3 (0.0-1.0); MONOCYTES % (AUTO) 8 % (0-12); NEUTROPHILS # (AUTO) 4.7 X 10^3 (1.8-7.8); NEUTROPHILS % (AUTO) 57 % (42-75); PLATELET COUNT 303 10^3/uL (130-400); RED BLOOD COUNT 4.43 10^6/uL (4.35-5.85); RED CELL DISTRIBUTION WIDTH 12.2 % (10.0-14.5); WHITE BLOOD COUNT 8.2 10^3/uL (4.3-11.0)
[2018-07-11] MEDS ORDERED: fentaNYL INJECTION 100 MCG/2 ML AMP IVP ONE (09:15)
[2018-07-11 09:19] LABS: BILIRUBIN,URINE NEGATIVE (NEGATIVE); CLARITY,URINE CLEAR; COLOR,URINE YELLOW; GLUCOSE, URINE (UA) NEGATIVE (NEGATIVE); KETONES,URINE NEGATIVE (NEGATIVE); LEUKOCYTE ESTERASE ,URINE 2+ (NEGATIVE); NITRITE,URINE NEGATIVE (NEGATIVE); PH,URINE 6 (5-9); PROTEIN,URINE 1+ (NEGATIVE); UROBILINOGEN,URINE NORMAL (NORMAL)
[2018-07-11 09:30] LABS: BACTERIA,URINE TRACE /HPF; WBC,URINE 0-2 /HPF
[2018-07-11 09:30] LABS: ALANINE AMINOTRANSFERASE 51 U/L (0-55); ALBUMIN 4.2 GM/DL (3.2-4.5); ALKALINE PHOSPHATASE 52 U/L (40-136); BILIRUBIN,TOTAL 0.6 MG/DL (0.1-1.0); BUN/CREATININE RATIO 13; CALCIUM 9.3 MG/DL (8.5-10.1); CARBON DIOXIDE 22 MMOL/L (21-32); CHLORIDE 104 MMOL/L (98-107); CREATININE SERUM 0.72 MG/DL (0.60-1.30); GFR ESTIMATED > 60; GLUCOSE 98 MG/DL (70-105); LIPASE 12 U/L (8-78); POTASSIUM 3.5 MMOL/L (3.6-5.0); SODIUM 137 MMOL/L (135-145)
[2018-07-11] MEDS ORDERED: RECEIVED CONTRAST (Hold Metformin) IV SCH (10:00)
[2018-07-11] MEDS ORDERED: IOHEXOL 350 MG/ML 100 ML (OMNIPAQUE 350) VIAL IV ONE (10:00)
[2018-07-11] MEDS ORDERED: NS 100 ML (IVPB) BAG IV ONE (10:00)
--- NOTE | 2018-07-11 10:03 | ED Abdominal Pain ---
General Chief Complaint: Abdominal/GI Problems Stated Complaint: SHARP ABD PAIN Nursing Triage Note: PT AMBULATES TO ROOM 9 PT CO OF L LOWER ABD PAIN STARTED YESTERDAY, PT CO OF SHARP PAIN L LOWER QUAD. PT STATES HAD BM TODAY. DENIES NAUSEA RATES PAIN /10 Sepsis Screen: No Definite Risk Source of Information: Patient Exam Limitations: No Limitations History of Present Illness Date Seen by Provider: Jul 11, 2018 Time Seen by Provider: 08:54 Initial Comments This 33-year-old woman ambulates to the emergency room with complaints of sharp left lower quadrant pain. It is worse with movement and standing and better when she lies down. She denies . LMP was June 21. Pain started yesterday. She has had accompanying nausea without vomiting. She denies constipation and had a normal bowel movement this morning. She has had no diarrhea. She denies any urinary symptoms or vaginal symptoms. She denies any risk for STDs as she has been in a long-term monogamous relationship with her . She is afebrile. Allergies and Home Medications Allergies Coded Allergies: Penicillins (Unverified Allergy, Unknown, 09/22/17) Patient Home Medication List Home Medication List Reviewed: Yes Review of Systems Review of Systems Constitutional: no symptoms reported EENTM: No Symptoms Reported Respiratory: No Symptoms Reported Cardiovascular: No Symptoms Reported Gastrointestinal: See HPI Genitourinary: No Symptoms Reported Musculoskeletal: no symptoms reported Skin: no symptoms reported Psychiatric/Neurological: No Symptoms Reported Endocrine: No Symptoms Reported Hematologic/Lymphatic: No Symptoms Reported Past Rmqxalt-Lcakfz-Edxzvj Hx Past Med/Social Hx: Reviewed and Corrections made Patient Social History Alcohol Use: Denies Use Recreational Drug Use: No Smoking Status: Never a Smoker Recent Foreign Travel: No Contact w/Someone Who Travel: No Recent Infectious Disease Expo: No Recent Hopitalizations: No Past Medical History Surgeries: Yes (DENTAL) Respiratory: No Cardiac: No Neurological: No : No Last Menstrual Period: Jun 21, 2018 Genitourinary: Yes (History of UTIs) Gastrointestinal: No Musculoskeletal: No Endocrine: No HEENT: No Cancer: No Psychosocial: No Integumentary: No Physical Exam Vital Signs Vital Signs - First Documented 07/11/18 08:55 Temp 97.0 Pulse 75 Resp 18 B/P (MAP) 141/96 (111) Pulse Ox 98 O2 Delivery Room Air Capillary Refill : Less Than 3 Seconds Height/Weight/BMI Height: 5'5.00" Weight: 200lbs. oz. 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 nml as tested, no motor/sensory deficits, alert, normal mood/affect, oriented x 3 Skin: normal color, warm/dry Progress/Results/Core Measures Results/Orders Lab Results Laboratory Tests Test 07/11/18 09:00 07/11/18 09:13 Range/Units White Blood Count 8.2 4.3-11.0 10^3/uL Red Blood Count 4.43 4.35-5.85 10^6/uL Hemoglobin 13.6 11.5-16.0 G/DL Hematocrit 40 35-52 % Mean Corpuscular Volume 89 80-99 FL Mean Corpuscular Hemoglobin 31 25-34 PG Mean Corpuscular Hemoglobin Concent 34 32-36 G/DL Red Cell Distribution Width 12.2 10.0-14.5 % Platelet Count 303 130-400 10^3/uL Mean Platelet Volume 10.3 7.4-10.4 FL Neutrophils (%) (Auto) 57 42-75 % Lymphocytes (%) (Auto) 33 12-44 % Monocytes (%) (Auto) 8 0-12 % Eosinophils (%) (Auto) 2 0-10 % Basophils (%) (Auto) 0 0-10 % Neutrophils # (Auto) 4.7 1.8-7.8 X 10^3 Lymphocytes # (Auto) 2.7 1.0-4.0 X 10^3 Monocytes # (Auto) 0.7 0.0-1.0 X 10^3 Eosinophils # (Auto) 0.1 0.0-0.3 10^3/uL Basophils # (Auto) 0.0 0.0-0.1 10^3/uL Sodium Level 137 135-145 MMOL/L Potassium Level 3.5 L 3.6-5.0 MMOL/L Chloride Level 104 98-107 MMOL/L Carbon Dioxide Level 22 21-32 MMOL/L Anion Gap 11 5-14 MMOL/L Blood Urea Nitrogen 9 7-18 MG/DL Creatinine 0.72 0.60-1.30 MG/DL Estimat Glomerular Filtration Rate > 60 BUN/Creatinine Ratio 13 Glucose Level 98 70-105 MG/DL Calcium Level 9.3 8.5-10.1 MG/DL Corrected Calcium 9.1 8.5-10.1 MG/DL Total Bilirubin 0.6 0.1-1.0 MG/DL Aspartate Amino Transf (AST/SGOT) 35 H 5-34 U/L Alanine Aminotransferase (ALT/SGPT) 51 0-55 U/L Alkaline Phosphatase 52 40-136 U/L Total Protein 7.0 6.4-8.2 GM/DL Albumin 4.2 3.2-4.5 GM/DL Lipase 12 8-78 U/L Serum Test, Qualitative NEGATIVE NEGATIVE Urine Color YELLOW Urine Clarity CLEAR Urine pH 6 5-9 Urine Specific [place] 1.020 1.016-1.022 Urine Protein 1+ H NEGATIVE Urine Glucose (UA) NEGATIVE NEGATIVE Urine Ketones NEGATIVE NEGATIVE Urine Nitrite NEGATIVE NEGATIVE Urine Bilirubin NEGATIVE NEGATIVE Urine Urobilinogen NORMAL NORMAL MG/DL Urine Leukocyte Esterase 2+ H NEGATIVE Urine RBC (Auto) 4+ H NEGATIVE Urine RBC NONE /HPF Urine WBC 0-2 /HPF Urine Squamous Epithelial Cells 10-25 H /HPF Urine Crystals NONE /LPF Urine Bacteria TRACE /HPF Urine Casts NONE /LPF Urine Mucus NEGATIVE /LPF Urine Culture Indicated NO My Orders Orders - ERIC MONTELONGO MD Cbc With Automated Diff (07/11/18 09:01) Comprehensive Metabolic Panel (07/11/18 09:01) Hcg,Qualitative Serum (07/11/18 09:01) Lipase (07/11/18 09:01) Ua Culture If Indicated (07/11/18 09:01) Saline Lock/Iv-Start (07/11/18 09:01) Fentanyl Injection (Sublimaze Injection (07/11/18 09:15) Ct Abdomen/Pelvis W (07/11/18 09:47) Iohexol Injection (Omnipaque 350 Mg/Ml 1 (07/11/18 10:00) Contrast Received (Contrast Received) (07/11/18 10:00) Ns (Ivpb) (Sodium Chloride 0.9% Ivpb Bag (07/11/18 10:00) Ketorolac Injection (Toradol Injection) (07/11/18 11:00) Medications Given in ED Current Medications Medications Dose Ordered Sig/Ruchi Route Start Time Stop Time Status Last Admin Dose Admin Fentanyl Citrate 50 mcg ONCE ONCE IVP 07/11/18 09:15 07/11/18 09:16 DC 07/11/18 09:20 50 MCG Iohexol 100 ml ONCE ONCE IV 07/11/18 10:00 07/11/18 10:01 DC 07/11/18 10:08 100 ML Ketorolac Tromethamine 15 mg ONCE ONCE IVP 07/11/18 11:00 07/11/18 11:01 DC 07/11/18 11:08 15 MG Sodium Chloride 100 ml ONCE ONCE IV 07/11/18 10:00 07/11/18 10:01 DC 07/11/18 10:08 100 ML Vital Signs/I&O 07/11/18 07/11/18 08:55 11:10 Temp 97.0 97.0 Pulse 75 75 Resp 18 18 B/P (MAP) 141/96 (111) 141/96 (111) Pulse Ox 98 98 O2 Delivery Room Air Blood Pressure Mean: 111 Urine -Bedside: Negative Progress Progress Note #1: Time: 09:57 Progress Note Patient was seen and examined. Pain was treated with fentanyl. Initial workup was unremarkable. I discussed imaging options with patient. Unfortunately we do not have ultrasound available this. I discussed risks and benefits of the various options including x-ray alone, treating pain and returning to a facility with ultrasound if pain worsens or does not improve, or performing CT scan at this facility. I discussed risks and benefits of CT scan including radiation exposure, cost, and exposure to contrast dye. Patient would really like some answers now and accepts the risks of CT scan. She requested CT scan which was ordered. Progress Note #2: Progress Note CT scan revealed 2 possible causes for her pain including an epiploic appendagitis and a left ovarian cyst. Patient was further treated with Toradol. See discharge instructions. Diagnostic Imaging Diagonstic Imaging: CT Plain Films/CT/US/NM/MRI: abdomen, pelvis Comments CT viewed by me and report reviewed. See report below: NAME: NEETU [facility] REC#: [id number] PT STATUS: REG ER : 1985 PHYSICIAN: ERIC MONTELONGO MD ADMIT DATE: 07/11/18/ER Signed Date of Exam: 07/11/18 CT ABDOMEN/PELVIS W PROCEDURE: CT abdomen and pelvis with contrast. TECHNIQUE: Multiple contiguous axial images were obtained through the abdomen and pelvis after administration of intravenous contrast. INDICATION: Left lower abdominal pain. FINDINGS: There are fatty infiltrates of liver with no focal liver lesions seen. The gallbladder and bile ducts are normal. The spleen, pancreas and adrenals are normal. Kidneys, ureters and bladder are normal. There is a 2.7 cm cyst on the left ovary. There is no right adnexal mass. There is slight pericolonic edema involving the fat of the upper epiploic appendage in the sigmoid region. This is consistent with epiploic appendagitis. No acute bowel abnormality is evident. There is no free air or free fluid. IMPRESSION: There is some mild edema adjacent to the sigmoid colon surrounding the fat consistent with epiploic appendagitis. There is a small left ovarian cyst present. Dictated by: Dictated on workstation # [id number] Dict: 07/11/18 1021 Trans: 07/11/18 1044 Interpreted by: ANTOLIN SNO MD Electronically signed by: ANTOLIN SON MD 07/11/18 1044 Departure Impression Primary Impression: Left ovarian cyst Additional Impression: Epiploic appendagitis Disposition: 01 HOME, SELF-CARE Condition: Improved Departure-Patient Inst. Decision time for Depature: 11:03 Referrals: JENNIFER ALFRED MD (PCP/Family) Primary Care Physician Patient Instructions: Ovarian Cyst (DC) Add. Discharge Instructions: For pain, you may take ibuprofen up to 600 mg every 6 hours as needed. Add Tylenol (acetaminophen) up to 1000 mg every 6 hours as needed for additional pain relief. Return to emergency room if you have worsening symptoms or if new symptoms such as fever develop. Follow-up with your primary care provider within the next 1-2 weeks. All discharge instructions reviewed with patient and/or family. Voiced understanding. Copy Copies To 1: JENNIFER ALFRED MD, JOSHUA T MD Jul 11, 2018 10:03
--- NOTE | 2018-07-11 10:29 | Diagnostic Imaging Report ---
PROCEDURE: CT abdomen and pelvis with contrast. TECHNIQUE: Multiple contiguous axial images were obtained through the abdomen and pelvis after administration of intravenous contrast. INDICATION: Left lower abdominal pain. FINDINGS: There are fatty infiltrates of liver with no focal liver lesions seen. The gallbladder and bile ducts are normal. The spleen, pancreas and adrenals are normal. Kidneys, ureters and bladder are normal. There is a 2.7 cm cyst on the left ovary. There is no right adnexal mass. There is slight pericolonic edema involving the fat of the upper epiploic appendage in the sigmoid region. This is consistent with epiploic appendagitis. No acute bowel abnormality is evident. There is no free air or free fluid. IMPRESSION: There is some mild edema adjacent to the sigmoid colon surrounding the fat consistent with epiploic appendagitis. There is a small left ovarian cyst present. Dictated by: Dictated on workstation # [id number]
[2018-07-11] MEDS ORDERED: KETOROLAC 30 MG/ML VIAL IVP ONE (11:00)
[2018-07-11 11:10] VITALS: BP 141/96
== END 2018-07-11 11:48 | disposition home or self-care (01) ==
LOC: ER 08:47 → EDUNIT# 08:47 → ER 11:48
DX: N83.202 Unspecified ovarian cyst, left side (principal); K65.9 Peritonitis, unspecified; Z88.0 Allergy status to penicillin; Z87.440 Personal history of urinary (tract) infections
CPT/HCPCS: 36415; 74177; 80053; 81000; 83690; 84703; 85025